=== PATIENT | male | born 1980 | race Caucasian/White ===

== ENCOUNTER 2022-05-04 01:02 | Emergency (ER) | payer SELFPAY ==
[~2022-05-04 01:02] MED LIST: BENTYL 20MG TAB20 MG PO; CYCLOBENZAPRINE10 MG PO; IBUPROFEN800 MG PO; LODINE CAP 300300 MG PO; MORPHINE SULFAT15 M1 PO; TESSALON PERLE100 MG PO; ZOFRAN ODT 4 MG4 MG PO; ZOFRAN4 MG PO; ZYRTEC10 MG PO
[2022-05-04] MEDS ORDERED: IBUPROFEN600 MG PO (02:25)
== END 2022-05-04 02:48 | disposition home or self-care (01) ==
LOC: ER1 01:02
DX: S93.401A Sprain of unspecified ligament of right ankle, initial encounter (principal); S93.601A Unspecified sprain of right foot, initial encounter; F17.210 Nicotine dependence, cigarettes, uncomplicated; X50.9XXA Other and unspecified overexertion or strenuous movements or postures, initial encounter
CPT/HCPCS: 73610; 73630; 99283